=== PATIENT | female | born 1955 | race Caucasian/White ===

== ENCOUNTER 2018-06-08 06:17 | Inpatient (IN) | payer OTHER ==
[2018-06-08] VITALS (8 sets, daily range): BP systolic 107–156; BP diastolic 36–65
[~2018-06-08] VITALS: Ht 168.9 cm; Wt 92.5 kg
[~2018-06-08 06:17] MED LIST: ALBU2.5V5 NEB; ASPI-630 PO; BUPR150T9 PO; CLOP75TA PO; FLUT1DIS IH; FLUT1DIS5 IH; LISI-334 PO; LISI10TA2 PO; SIMV10TA3 PO; SIMV40TA3 PO; VENTOLIN HFA18 GM IH
[2018-06-08] MEDS: IV NORMAL SALINE 1000ML BAG 1,000 ML IV SCH ×2 (06:50→20:15)
[2018-06-08] MEDS ORDERED: SIMV10TA3 PO (06:59)
[2018-06-08] MEDS ORDERED: C,E,1CAP PO (06:59)
[2018-06-08] MEDS ORDERED: LIDOCAINE 1% Multi-Dose 50 ML VIAL. ONE (07:10)
[2018-06-08] MEDS ORDERED: IODIXANOL 320 MG/ML 100 ML VIAL. ONE (07:10)
[2018-06-08 07:17] LABS: HEMATOCRIT 43.7 % (36.0-47.0); RED BLOOD COUNT 4.74 x10^6/uL (3.50-5.40); RED CELL DISTRIBUTION WIDTH 13.5 % (11.5-14.5)
[2018-06-08 07:27] LABS: CALCIUM 9.4 mg/dL (8.5-10.1); CREATININE 0.7 mg/dL (0.6-1.0)
[2018-06-08] MEDS ORDERED: fentaNYL PF VIAL 100 MCG/2 ML VIAL ONE ×2 (08:12→09:25)
[2018-06-08] MEDS ORDERED: MIDAZOLAM HCL/PF 2 MG/2 ML VIAL. ONE ×2 (08:12→09:25)
[2018-06-08] MEDS ORDERED: HEPARIN for IV BOLUS 10,000 UNIT/10 ML VIAL. ONE (08:51)
[2018-06-08] MEDS ORDERED: NITROGLYCERIN 200 MCG/2 ML SYRINGE FOR CATH/VASC LAB. ONE (09:12)
[2018-06-08] MEDS ORDERED: IODIXANOL 320 MG/ML 100 ML VIAL. IART ONE (10:15)
[2018-06-08] MEDS ORDERED: HEPARIN for IV BOLUS 10,000 UNIT/10 ML VIAL. IV ONE (10:15)
[2018-06-08] MEDS ORDERED: LIDOCAINE 1% Multi-Dose 50 ML VIAL. INJ ONE (10:15)
[2018-06-08] MEDS ORDERED: fentaNYL PF VIAL 100 MCG/2 ML VIAL IV ONE (10:15)
[2018-06-08] MEDS ORDERED: NITROGLYCERIN 200 MCG/2 ML SYRINGE FOR CATH/VASC LAB. IART ONE (10:15)
[2018-06-08] MEDS ORDERED: MIDAZOLAM HCL/PF 2 MG/2 ML VIAL. IV ONE (10:15)
[2018-06-08] MEDS ORDERED: CONTRAST GIVEN. MC PRN (10:30)
[2018-06-08] MEDS ORDERED: ASPIRIN CHEWABLE 81 MG TABLET. PO ONE (11:00)
[2018-06-08] MEDS ORDERED: CLOPIDOGREL BISULFATE 75 MG TABLET PO ONE (11:00)
--- NOTE | 2018-06-08 16:02 | CARD ---
MR#: [id number] Date of Study: 06/08/2018 Ordering Physician: YELENA CARRION, Referring Physician: YELENA CARRION, Tech: RT Grace (R) APPROVED REPORT Technologist: Tash Magdaleno RT (R) Nurse: Misti Stanley R.N. Procedure(s) performed: Moderate sedation: 123 minutes Abdominal aortography with bilateral femoral run-off PVI and stent of the RSFA HISTORY : The patient is a 63 year-old female with a history of . INDICATION The indication(s) include : right > left brian category 3 claudication. PROCEDURE NARRATIVE After appropriate informed consent, the patient was brought to the woods laborer and placed in the supine position. Preprocedural timeout was completed and confirmed the right patient and procedure. The bila teral groins were prepped and draped in usual sterile fashion. Moderate sedation acheived with Fentan yl and Versed. The patient received 7000 units of Heparin for anticoagulation. Access: Under lidocaine local anesthesia, a 5Fr introducer sheath was placed in the LCFA via the sandrine fied seldinger technique with a J-tipped guidewire and an 18g needle. Diagnostic angiography was then performed using a 5Fr Omniflush catheter with digital subtraction angiography. Next, the contralater al (RCFA) was accessed with the aid of the Omniflush catheter and a J-tipped guidewire. The omniflush was then exchanged for a long angled glide catheter which was then placed in the RCFA. Repeat right lower extremity with DSA was performed. Gradients were measured across the right and left iliacs and there was notable 20mm gradients. FINDINGS: AO: 154/86 AORTA: Moderate adventitial calcification and ectasia with diffuse 30% stenosis. RENAL arteries: Single right and left renal arteries were identified without significant disease. RCIA: Diffuse ectasia with 50% ostial stenosis. REIA: Diffuse ectasia with 40-50% stenosis. RIIA: Diffuse disease of up to 50%. RCFA: No significant disease. RSFA: Has a proximal 40% stenosis, and mid to distal 80% stenosis. RPOP: No significant disease. RAT: Ostially occluded. The distal vessel is seen to fill via robust peroneal collaterals. RPER: Patent without significant disease and provides the major flow to the foot. RPT: Ostially occluded. Distal vessel is seen to fill via robust peroneal collaterals. LCIA: Mild diffuse irregularities of up to 60%. [place]: There is a patent stent with with distal 50% ISR at the site of an overlapping external iliac a rtery stent. LIIA: Diffuse irregularities. LCFA: No significant disease. LSFA: No significant disease. LPOP: No significant disease. LAT: Occluded proximally. LPER: Major run-off to the left foot and has mid 30% stenosis. LPT: Occluded proximally. Distal vessel fills via robust peroneal collaterals. INTERVENTIONAL TECHNIQUE: Due to right greater than left claudication an intervention was performed on the RSFA. Heparin was us ed for anticoagulation. Through a 6Fr Daquan sheath the lesion was crossed with a command wire. The le aaron was sequentially angioplastied with a 4.0/40, 6/40 (Drug coated balloon) and prolonged inflation with a 6.0/80 mm balloon revealed residual dissection with normal flow pattern. The dissection was t hen covered with a Smart 6.0/80 self expanding stent and the proximal half of the stent was post-dila edith with a 7.0/20 mm balloon at nominal pressures. Post-PVI angiography revealed excellent stent expa nsion with brisk flow to the foot. The left sided sheath was removed and hemostasis was achieved with an Angioseal device. The patient received ASA 325mg and Plavix 600mg at case completion. Conclusion 1. [place] category 3 claudication 2. Successful PVI and stent of the RSFA with a Smar 6.0/80 mm. 3. Diffuse iliac disease. Recommendations Aggressive risk factor modification. May consider aorto-iliac bifurcation stenting depending on symptoms in the future. Signed by : Yelena Carrion, Electronically Approved : 06/08/2018 16:02:04
[2018-06-09 03:00] VITALS: BP 130/32
[2018-06-09 07:00] VITALS: BP 135/38
[2018-06-09] MEDS ORDERED: ASPIRIN ENTERIC COATED 81 MG TABLET.DR. PO SCH (08:00)
[2018-06-09] MEDS ORDERED: CLOPIDOGREL BISULFATE 75 MG TABLET PO SCH (08:00)
--- NOTE | 2018-06-09 10:38 | PDOC3 ---
Discharge Summary Visit Information Date of Admission: Jun 08, 2018 Date of Discharge: Jun 09, 2018 Admitting Diagnosis: PAD with claudications Final Diagnosis Severe PAD, S/P TUBE FORMER OPERATOR/stent to RSFA Brief Hospital Course Allergies Allergies Coded Allergies Type Severity Reaction Last Updated Verified Sulfa (Sulfonamide Antibiotics) Allergy Intermediate 04/03/15 Yes Vital Signs Vital Signs Date Time Temp Pulse Resp B/P (MAP) Pulse Ox O2 Delivery O2 Flow Rate FiO2 06/09/18 08:31 Room Air 06/09/18 07:00 98.3 71 20 135/38 (70) 95 98.3 06/08/18 11:01 2.0 Lab Results Laboratory Tests Test 06/08/18 07:12 06/08/18 10:05 White Blood Count 9.0 x10^3/uL (4.0-11.0) Red Blood Count 4.74 x10^6/uL (3.50-5.40) Hemoglobin 15.0 g/dL (12.0-15.5) Hematocrit 43.7 % (36.0-47.0) Mean Corpuscular Volume 92 fL (79-100) Mean Corpuscular Hemoglobin 32 pg (25-35) Mean Corpuscular Hemoglobin Concent 34 g/dL (31-37) Red Cell Distribution Width 13.5 % (11.5-14.5) Platelet Count 242 x10^3/uL (140-400) Prothrombin Time 12.0 SEC (11.7-14.0) Prothromb Time International Ratio 0.9 (0.8-1.1) Activated Partial Thromboplast Time 34 SEC (24-38) Sodium Level 142 mmol/L (136-145) Potassium Level 4.0 mmol/L (3.5-5.1) Chloride Level 106 mmol/L (98-107) Carbon Dioxide Level 28 mmol/L (21-32) Anion Gap 8 (6-14) Blood Urea Nitrogen 14 mg/dL (7-20) Creatinine 0.7 mg/dL (0.6-1.0) Estimated GFR (Cockcroft-Gault) 84.0 Glucose Level 88 mg/dL (70-99) Calcium Level 9.4 mg/dL (8.5-10.1) Activated Clotting Time 274 sec (92-181) Brief Hospital Course Ms. Ken is a 63 yo female admitted for PAD with claudications symptoms with planned femoral runoff. She is S/P PVI and stent of the RSFA which she tolerated well via left groin femoral approach. Left groin is intact without erythema and soft to palpation. Neurovascular status to bilateral LE intact. VSS and no rhythm ectopies. She tolerated procedure well without complications. Discussed complete stoppage of tobacco use and incremental increase in exercise regimen. ASA 81 mg and plavix Rx provided. Continue with secondary prevention with post TUBE FORMER OPERATOR instructions and follow up in office in 4 weeks. Discharge Information Condition at Discharge: Stable Follow Up: Weeks (4) Disposition/Orders: D/C to Home Scheduled Albuterol Sulfate (Ventolin Hfa Inhaler) 18 Gm Hfa.aer.ad, 2 PUFF IH PRN Q4-6HRS , #1 (Reported) Entered as Reported by: AN DUMONT on 04/02/15843 Last Action: Reviewed on 06/08/18658 by LACY VELASCO Aspirin (Aspirin) 81 Mg Tab.chew, 1 TAB PO DAILY, #30 Ref 3 (Reported) Entered as Reported by: AN DUMONT on 04/02/15831 Last Action: Reviewed on 06/08/18658 by LACY VELASCO C,E,Zinc,Copper 11/Lnsfd7u/Lut (Ocuvite Adult 50 Plus Softgel) 1 Each Capsule, 1 CAP PO DAILY, (Reported) Entered as Reported by: LACY VELASCO on 06/08/18658 Last Action: New Order on 06/08/18658 by LACY VELASCO Fluticasone/Salmeterol (Advair 500-50 Diskus) 1 Each Disk.w.dev, 1 PUFF IH BID, #1 Ref 5 (Reported) Entered as Reported by: AN DUMONT on 04/02/15843 Last Action: Reviewed on 06/08/18658 by LACY VELASCO Lisinopril (Lisinopril) 10 Mg Tablet, 1 TAB PO DAILY, #30 Ref 5 (Reported) Entered as Reported by: AN DUMONT on 04/02/15843 Last Action: Reviewed on 06/08/18658 by LACY VELASCO Simvastatin (Simvastatin) 10 Mg Tablet, 1 TAB PO QHS, #30 Ref 5 (Reported) Entered as Reported by: LACY VELASCO on 06/08/18658 Last Action: New Order on 06/08/18658 by LACY VELASCO Discontinued Medications Bupropion Hcl (Zyban) 150 Mg Tablet.er, 150 MG PO BID, (Reported) Entered as Reported by: AN DUMONT on 04/02/15843 Last Action: Discontinued on 06/08/18658 by LACY VELASCO Simvastatin (Simvastatin) 40 Mg Tablet, 1 TAB PO QHS, #30 Ref 5 (Reported) Entered as Reported by: AN DUMONT on 04/02/15843 Last Action: Discontinued on 06/08/18658 by LACY VELASCO Patient Instructions Patient Instructions GENERAL INSTRUCTIONS: 1. Your dressing should be removed prior to leaving the hospital. 2. It is OK to shower the day after your procedure. 3. If you received stents, be sure to carry your stent information card with you in your wallet/purse at all times. 4. Call the office immediately at [phone] if you notice any fever or if there is redness, worsening tenderness/pain, increased bruising, or drainage from the puncture site. 5. Should you have bleeding from the site, lie down immediately & put pressure on the site. The pressure should be hard enough to stop the bleeding. Have the nearest person call 911. DO NOT try to drive to the ER with active bleeding. 6. If you notice a change in color, coolness to touch, or loss of feeling in the affected extremity, come to the emergency room. Please have someone drive you or call 911 if no one is available. DO NOT drive yourself. 7. If you normally take glucophage (metformin), please do not take this medicine for 48 hours following your procedure. 8. DO NOT STOP TAKING YOUR PLAVIX OR ASPIRIN UNLESS IT IS CLEARED BY A POISON INFORMATION SPECIALIST OF YOUR PILOT SAFETY INSPECTOR AT OUR OFFICE. 9. QUIT SMOKING: the [place] [employer], [place] [employer], & [place] [employer] have cessation resources available on their websites 10. Please have someone available to drive you home from the hospital as you may be limited by sedation medications given during the procedure. Femoral (Groin) access: 1. Do no lifting, pushing, pulling, bending, stooping, or recurrent stair climbing for 3 days following your procedure. 2. Once past the first 3 days, do not do any HEAVY exertion or lifting for one week following the procedure. No gym workouts, running, lifting greater than a gallon of milk, etc 3. Do not submerge in bath or pool for one week. OK to drive 3 days following your procedure, but if going long distance, do not go alone & take hourly breaks to get out of car and walk around. Call the office at [phone] for any questions or concerns. ANDREY CENTENO APRN Jun 09, 2018 10:38
[2018-06-09 11:00] VITALS: BP 135/45
== END 2018-06-09 12:30 | disposition home or self-care (01) | DRG 254 ==
LOC: CCL 06:17 → CVICU 09:10
PROVIDERS: ADMIT Internal Medicine Cardiovascular Disease; ATTEND Internal Medicine Cardiovascular Disease
PROC: 047K3D1 Dilation of Right Femoral Artery with Intraluminal Device, using Drug-Coated Balloon, Percutaneous Approach (ICD-10-PCS; principal; 2018-06-08)
PROC: B41D1ZZ Fluoroscopy of Aorta and Bilateral Lower Extremity Arteries using Low Osmolar Contrast (ICD-10-PCS; 2018-06-08)
DX: I73.9 Peripheral vascular disease, unspecified (principal); Z88.2 Allergy status to sulfonamides
CPT/HCPCS: 36415; 37226; 75630; 80048; 85027; 85347; 85610; 85730; 99152; 99153; 99406; C1769; C1771; C1876; C1885; C1892; C2623; G0269; J1644; J2250; J3010; J3490; J7030

== ENCOUNTER → 2021-10-16 | Outpatient (CLI) | payer MEDICARE, MEDICAID ==
[~2021-10-16] MED LIST changes: +C,E,1CAP PO; +GADOTERATE 7.5 MMOL/15ML VIAL. IVP ONE; -LISI-334 PO; +LISI10TA16 PO; -LISI10TA2 PO; +LISI20TA18 PO; +SIMV10TA15 PO; -SIMV10TA3 PO; +SIMV40TA18 PO; -SIMV40TA3 PO
--- NOTE | 2021-10-16 11:13 | RAD ---
MRI of the Brain without and with Contrast 10/16/2021 Clinical History: Small cell lung cancer.. Technique: Unenhanced T1-weighted sagittal and axial and FLAIR, T2-weighted, gradient echo and diffus ion-weighted axial images of the brain were obtained. After the intravenous administration of 15 cc o f Clariscan, enhanced T1-weighted axial, sagittal and coronal images of the brain were obtained. Findings: There is generalized parenchymal atrophy. Patchy, confluent and multiple small focal areas of abnormally increased signal intensity are seen within the periventricular and subcortical white ma tter of both cerebral hemispheres on the FLAIR and T2-weighted images consistent with areas of small vessel ischemic disease. Incidental note is made of a 1.6 cm venous angioma involving the left cerebe llar hemisphere. No acute parenchymal abnormality is seen. There is no MRI evidence of acute ischemia/infarction. No e xtra-axial fluid collection is seen. No area of significant abnormal contrast enhancement is noted. Mild mucosal thickening in seen scattered throughout the paranasal sinuses. There are small to modera te-sized mastoid effusions, left greater than right. Normal flow voids are seen within the major vasc ular structures surrounding the brain parenchyma. IMPRESSION: No acute parenchymal abnormality is seen. There is no MRI evidence of metastatic disease involving the brain parenchyma. Electronically signed by: Pineda Cazares MD (10/16/2021 11:11 AM) [id number]
== END ==
LOC: MRI 07:57
PROVIDERS: ATTEND Internal Medicine Hematology & Oncology
DX: C34.32 Malignant neoplasm of lower lobe, left bronchus or lung (principal); G31.9 Degenerative disease of nervous system, unspecified; J34.89 Other specified disorders of nose and nasal sinuses; G93.6 Cerebral edema; R42 Dizziness and giddiness; R26.89 Other abnormalities of gait and mobility
CPT/HCPCS: 70553; A9575

== ENCOUNTER 2021-11-05 06:48 | Outpatient (CLI) | payer MEDICARE, MEDICAID ==
[~2021-11-05] VITALS: Ht 167.6 cm; Wt 109.0 kg
[~2021-11-05 06:48] MED LIST changes: -GADOTERATE 7.5 MMOL/15ML VIAL. IVP ONE
[2021-11-05 07:57] VITALS: BP 151/54
[2021-11-05] MEDS ORDERED: SODIUM BICARBONATE VIAL 150 MEQ in IV STERILE WATER 1,000 ML IV SCH (08:00)
[2021-11-05] MEDS ORDERED: CONTRAST GIVEN. MC PRN (09:45)
[2021-11-05] MEDS ORDERED: IOHEXOL 300 MG/ML 100ML VIAL. IV ONE (09:45)
[2021-11-05 10:03] LABS: CREATININE 1.1 mg/dL (0.6-1.0); GFR 49.4
[2021-11-05 10:23] VITALS: BP 121/71
[2021-11-05 12:55] VITALS: BP 123/47
--- NOTE | 2021-11-06 11:22 | RAD ---
CT THORAX W dated 11/05/2021 9:41 AM Indication:Reason: Small cell lung cancer with hydration protocol / Spl. Instructions: IV omni 300 6 0ml / History: Comparison: No comparison is available. Technique: CT images were performed using an infusion of 60 mL Omnipaque 300. One or more of the following individualized dose reduction techniques were utilized for this examinat ion: 1. Automated exposure control 2. Adjustment of the mA and/or kV according to patient size 3. Use of iterative reconstruction technique Findings: There is evidence of previous left lower lobectomy. Linear scarring or atelectasis is seen at the lef t lung base. There is a calcified granuloma anteriorly in the right upper lobe. No significant pulmon pam mass or nodule is seen. The remaining central airways appear normal. No enlarged lymph nodes are seen. Images through the upper abdomen show a small nodule in the left adrenal gland measuring about 8 mm. Internal attenuation averages around 21 Hounsfield units. IMPRESSION: Postoperative changes in the chest. No evidence of lung mass or significant nodule. Suspected small left adrenal nodule. This is indeterminate, although relatively low attenuation for a contrast study, and a benign process is favored. Comparison with prior exams would be useful. Electronically signed by: Mauricio Berrios Jr., MD (11/06/2021 7:47 AM) [facility]
== END 2021-11-05 13:07 | disposition home or self-care (01) ==
LOC: CT 06:48
PROVIDERS: ATTEND Internal Medicine Hematology & Oncology
DX: C34.32 Malignant neoplasm of lower lobe, left bronchus or lung (principal); J84.10 Pulmonary fibrosis, unspecified; R79.89 Other specified abnormal findings of blood chemistry; Z90.2 Acquired absence of lung [part of]
CPT/HCPCS: 36415; 71260; 82565; J3490; Q9967

== ENCOUNTER → 2021-12-19 | Outpatient (CLI) | payer MEDICARE, MEDICAID ==
--- NOTE | 2021-12-19 11:16 | RAD ---
MR#: [id number] Date of Study: 12/19/2021 Ordering Physician: YELENA ANTUNEZ, Referring Physician: YELENA ANTUNEZ, Tech: APPROVED REPORT Indications PAD VELOCITY AND DOPPLER WAVEFORM ANALYSIS RIGHT cm/secWaveformSeverity LEFT cm/secWaveform Severity pCFA 153.9pCFA 144.1 Prof Fem Art. 135.4Prof Fem Art. 93.4 Fem Art Prox. 118.2Fem Art Prox. 123.9 Fem Art Mid. 162.1Fem Art Mid. 185.1 Fem Art Dist. 73.6Fem Art Dist. 183.8 Pop Art(Fossa) 49.8Pop Art(AK) 84.3 SEAM PRESS OPERATOR Prox. 26.8PTA Prox. 38.0 SEAM PRESS OPERATOR Dist. 12.0PTA Dist. Not visualized Per Art Mid. 27.3Per Art Mid. 67.8 DEVEN Prox. 16.7ATA Prox. DEVEN Prox. DEVEN Prox. 112.4 DPA 52.1DPA 61.1 Findings Grayscale images of the bilateral lower extremity arterial vessels demonstrate mild to moderate diffu se atherosclerosis. On the right side no significant obstructive disease is noted from the common femoral artery to the p opliteal segment. Below the knee there is likely occlusion of the peroneal and posterior tibial vess els with severely diminished waveforms. The anterior tibial vessel is likely diffusely diseased with reconstitution via collaterals at the level of the dorsalis pedis artery. On the left side again there are no significant obstructive lesions noted from the common femoral art anna to the popliteal segment although the waveforms are monophasic suggestive of arterial inelasticit y versus more proximal inflow disease. The left posterior tibial artery is occluded distally. Peron eal artery and anterior tibial artery appear to be patent. Critical Notification Critical Value: No <Conclusion> 1. Severe below-knee disease bilaterally right greater than left. Signed by : Yelena Antunez, Electronically Approved : 12/19/2021 11:15:33
--- NOTE | 2021-12-19 11:16 | RAD ---
MR#: [id number] Date of Study: 12/19/2021 Ordering Physician: CONRAD ANTUNEZ, Referring Physician: CONRAD ANTUNEZ, Tech: AYLA VILLAGRAN RVT APPROVED REPORT Patient Location: OUT-PATIENT Exam Type: Ankle to Brachial Index Indications PAD Pressures/Indices RightABI LeftABI Brachial 150/96lpZm5.7Brachial 146/66qyNh6.3 Ankle(PT) 148/30lwBw8.4Ankle(PT) 148/17zmQx8.1 Ankle(DP) 141/08umJq9.35Ankle(DP) 142/26xhJp5.0 Findings Right arm 150, left arm 146 Right posterior tibial artery 148, left posterior tibial artery 148 Right dorsalis pedis artery 141, left dorsalis pedis artery 142 Normal bilateral CAYDEN Critical Notification Critical Value: No <Conclusion> 1. Normal bilateral CAYDEN Signed by : Conrad Antunez, Electronically Approved : 12/19/2021 11:16:27
--- NOTE | 2021-12-19 11:23 | CARD ---
MR#: [id number] Date of Study: 12/19/2021 Ordering Physician: YELENA ANTUNEZ, Referring Physician: YELENA ANTUNEZ, Tech: Adam Morris [facility] APPROVED REPORT EXAM: Two-dimensional and M-mode echocardiogram with Doppler and color Doppler. Other Information Quality : AverageHR: 65bpm Rhythm : NSR INDICATION Peripheral arterial disease RISK FACTORS Obesity Smoking 2D DIMENSIONS Left Atrium(2D)3.8 (1.6-4.0cm)IVSd1.2 (0.7-1.1cm) Aortic Root(2D)3.2 (2.0-3.7cm)LVDd4.0 (3.9-5.9cm) LVOT Diameter2.0 (1.8-2.4cm)PWd1.2 (0.7-1.1cm) LA Tfsmiz73 (18-58mL)LVDs2.3 (2.5-4.0cm) FS (%) 41.9 %SV51.4 ml LVEF(%)73.4 (>50%) Aortic Valve AoV Peak Darian.143.6cm/sAoV VTI33.0cm AO Peak GR.8.2mmHgLVOT Peak Darian.74.8cm/s LVOT VTI 17.28cmAO Mean GR.5mmHg LALO (VMAX)1.38zu9MVS (VTI)1.62cm2 Mitral Valve MV E Axydeiif20.0cm/sMV DECEL LAIP440vb MV A Zslyndzt14.2cm/sMV URO44mu E/A Ratio0.6MVA (PHT)2.33cm2 TDI E/Lateral E'11.6E/Medial E'12.3 Pulmonary Valve PV Peak Ofqmpmbf43.1cm/sPV Peak Grad.3mmHg Tricuspid Valve TR P. Sdksfxqw152rv/sTR Peak Gr.18mmHg Pulmonary Vein S1 Koksnuay07.1cm/sD2 Dzuyppzu68.9cm/s LEFT VENTRICLE The left ventricle is normal size. There is normal left ventricular wall thickness. The left ventricu lar systolic function is normal and the ejection fraction is within normal range. EF 55% There is nor mal LV segmental wall motion. Transmitral Doppler flow pattern is Grade I-abnormal relaxation pattern . No left ventricle thrombus noted on this study. There is no ventricular septal defect visualized. T here is no left ventricular aneurysm. There is no mass noted in the left ventricle. RIGHT VENTRICLE The right ventricle is normal size. There is normal right ventricular wall thickness. The right ventr icular systolic function is normal. ATRIA The left atrium size is normal. The right atrium size is normal. The interatrial septum is intact wit h no evidence for an atrial septal defect or patent foramen ovale as noted on 2-D or Doppler imaging. AORTIC VALVE The aortic valve is mildly sclerotic. Doppler and Color Flow revealed no significant aortic regurgita tion. There is no significant aortic valvular stenosis. There is no aortic valvular vegetation. MITRAL VALVE The mitral valve is normal in structure and function. There is no evidence of mitral valve prolapse. There is no mitral valve stenosis. Doppler and Color-flow revealed trace mitral regurgitation. TRICUSPID VALVE The tricuspid valve is normal in structure and function. Doppler and Color Flow revealed trace tricus pid regurgitation. There is no tricuspid valve prolapse or vegetation. There is no tricuspid valve st enosis. PULMONIC VALVE Doppler and Color Flow revealed no pulmonic valvular regurgitation. There is no pulmonic valvular guzman nosis. GREAT VESSELS The aortic root is normal in size. The ascending aorta is normal in size. The IVC is normal in size a nd collapses >50% with inspiration. PERICARDIAL EFFUSION There is no pleural effusion. There is no evidence of significant pericardial effusion. Critical Notification Critical Value: No <Conclusion> The left ventricular systolic function is normal and the ejection fraction is within normal range. EF 55% There is normal LV segmental wall motion. Signed by : Yelena Antunez, Electronically Approved : 12/19/2021 11:22:54
== END ==
LOC: ECHO 08:32
PROVIDERS: ATTEND Internal Medicine Cardiovascular Disease
DX: I70.203 Unspecified atherosclerosis of native arteries of extremities, bilateral legs (principal); I35.1 Nonrheumatic aortic (valve) insufficiency; I10 Essential (primary) hypertension
CPT/HCPCS: 93306; 93922; 93925; C8929